=== PATIENT | male | born 1980 | race Caucasian/White ===

== ENCOUNTER 2018-03-09 05:54 | Emergency (ER) | payer BC ==
[2018-03-09 05:57] VITALS: BP 152/85
--- NOTE | 2018-03-09 06:54 | ED ---
Throat Pain/Nasal Congestion - HPI Summary HPI Summary: 47 presents to the ER with complaints of throat pain. Patient states he thinks he had strep. States throat began being sore 3 days ago but worsened yesterday/ today. He had strep as a child frequently. Admits to fever with highest being around 101 Fahrenheit. Patient has taken ibuprofen and NyQuil. NyQuil last taken prior to arrival. No known strep contact. Denies cough, congestion, chest pain, trouble breathing, headache, nausea/vomiting. Has had some body aches and felt ill. No history of peritonsillar abscess. No other past history. No other medications. No trouble swallowing but is sore. - History of Current Complaint Chief Complaint: EDThroatPain Time Seen by Provider: 03/09/18 06:11 Hx Obtained From: Patient Onset/Duration: Sudden Onset, Lasting Days Severity: Moderate Associated Signs And Symptoms: Positive: Dysphagia Cough: None - Allergies/Home Medications Allergies/Adverse Reactions: Allergies Allergy/AdvReac Type Severity Reaction Status Date / Time No Known Allergies Allergy Verified 03/09/18 05:57 PMH/Surg Hx/FS Hx/Imm Hx Endocrine/Hematology History: Denies: Hx Diabetes Cardiovascular History: Denies: Hx Hypertension Respiratory History: Denies: Hx Asthma Psychiatric History: Denies: Hx Anxiety - Surgical History Surgery Procedure, Year, and Place: n/a - Immunization History Immunizations Up to Date: Yes Infectious Disease History: No Infectious Disease History: Denies: Traveled Outside the [place] in Last 30 Days - Family History Known Family History: Positive: None - Social History Alcohol Use: None Substance Use Type: Reports: None Smoking Status (MU): Never Smoked Tobacco Review of Systems Positive: Fever, Fatigue Positive: Sore Throat Cardiovascular: Negative Respiratory: Negative Gastrointestinal: Negative Positive: Myalgia Neurological: Negative All Other Systems Reviewed And Are Negative: Yes Physical Exam Triage Information Reviewed: Yes Vital Signs On Initial Exam: Initial Vitals Temp Pulse Resp BP Pulse Ox 99.0 F 89 16 152/85 98 03/09/18 05:55 03/09/18 05:55 03/09/18 05:55 03/09/18 05:55 03/09/18 05:55 low grade temp noted, patient did take acetaminophen prior to arrival. elevated BP noted patient will follow up for recheck Vital Signs Reviewed: Yes Appearance: Positive: Well-Appearing, No Pain Distress, Well-Nourished Skin: Positive: Warm, Skin Color Reflects Adequate Perfusion, Dry Head/Face: Positive: Normal Head/Face Inspection Eyes: Positive: EOMI, Conjunctiva Clear ENT: Positive: Hearing grossly normal, Pharyngeal erythema, TMs normal, Tonsillar swelling - left greater than right, Tonsillar exudate, Hoarse voice, Uvula midline - no sign of peritonsillar abscess, airway patent, Other - odor noted, similar to strep odor. Negative: Nasal congestion Dental: Positive: Cervical Lymphadenopathy Neck: Positive: Supple, Nontender Respiratory/Lung Sounds: Positive: Clear to Auscultation, Breath Sounds Present. Negative: Rales, Rhonchi, Wheezes Cardiovascular: Positive: Normal, RRR, Pulses are Symmetrical in both Upper and Lower Extremities. Negative: Murmur, Rub Abdomen Description: Positive: Nontender, Soft Bowel Sounds: Positive: Present Musculoskeletal: Positive: Normal, Strength/ROM Intact Neurological: Positive: Normal, Sensory/Motor Intact, Alert, Oriented to Person Place, Time Diagnostics - Vital Signs Vital Signs Temp Pulse Resp BP Pulse Ox 03/09/18 05:55 99.0 F 89 16 152/85 98 - Laboratory Lab Statement: Any lab studies that have been ordered have been reviewed, and results considered in the medical decision making process. EENT Course/Dx - Course Course Of Treatment: based on centor criteria, not required to do swab. symptoms and physical exam findings consistent with strep. fluids, rest, ibuprofen/tylenol, salt water gargles, chloraseptic spray and amoxicillin. aware of worsening signs and symptoms to watch out for. no other concerns at this time. follow up with pcp, and to recheck BP - Differential Diagnoses Differential Diagnoses: Pharyngitis, Tonsilitis - Diagnoses Provider Diagnoses: Strep pharyngitis Discharge - Sign-Out/Discharge Documenting (check all that apply): Discharge/Admit/Transfer - Discharge Plan Condition: Good Disposition: HOME Prescriptions: Amoxicillin PO (*) [Amoxicillin 500 MG CAP*] 500 mg PO Q12H #20 cap Patient Education Materials: Strep Throat (ED) Referrals: Felix Dias MD [Primary Care Provider] - Additional Instructions: Take prescribed medication as directed, until entire dose is finished, even if symptoms improve. Recommend taking probiotics in between doses to replenish normal antoine. Increase fluids and rest. Ibuprofen/tylenol for fever and pain. Salt water gargles, chloraseptic spray. Good oral hygiene, do not share drinks. strep is very contagious. Any new or worsening signs/symptoms to watch out for. Follow up with PCP in 2-3 days. - Billing Disposition and Condition Condition: GOOD Disposition: HOME
== END 2018-03-09 07:21 | disposition home or self-care (01) ==
LOC: ED 05:54
DX: J02.0 Streptococcal pharyngitis (principal); R50.9 Fever, unspecified; R53.83 Other fatigue
CPT/HCPCS: 99282

== ENCOUNTER 2018-10-16 13:04 | Emergency (ER) | payer BC ==
[2018-10-16] MEDS ORDERED: Albuterol 0.5% CONC NEB.SOL* 5 MG/ML 20 ml BOT INH ONE (13:32)
[2018-10-16] MEDS ORDERED: Albuterol 2.5 MG/3 ML NEB.SOL* (0.083%) INH ONE ×2 (13:38→13:42)
--- NOTE | 2018-10-16 13:54 | ED ---
HPI Febrile Illness - HPI Summary HPI Summary: Pt is a 38 y/o male who presents to the ED c/o fever. Hes had fevers ranging from 100-102 degrees F for the past 4 days. Pt also has a hacking cough, but he doesnt cough up much phlegm, and body aches, SOB, and chills. Pt denies any N/V/D or sinus tenderness. He took Nyquil 2 hours ago and had toast with it. Pt did not get this seasons flu shot. - History of Current Complaint Chief Complaint: EDGeneral Time Seen by Provider: 10/16/18 13:23 Hx Obtained From: Patient Onset/Duration: Started Days Ago - 4, Still Present Timing: Constant Current Severity: None Pain Intensity: 0 Pain Scale Used: 0-10 Numeric Aggravating Factors: Nothing Alleviating Factors: Nothing Associated Signs and Symptoms: Chills, Cough, SOB - Allergy/Home Medications Allergies/Adverse Reactions: Allergies Allergy/AdvReac Type Severity Reaction Status Date / Time No Known Allergies Allergy Verified 03/09/18 05:57 PMH/Surg Hx/FS Hx/Imm Hx Endocrine/Hematology History: Denies: Hx Diabetes Cardiovascular History: Denies: Hx Hypertension Respiratory History: Denies: Hx Asthma Psychiatric History: Denies: Hx Anxiety - Surgical History Surgery Procedure, Year, and Place: n/a Infectious Disease History: No Infectious Disease History: Denies: Traveled Outside the [place] in Last 30 Days - Family History Known Family History: Negative: Cardiac Disease, Hypertension, Diabetes - Social History Alcohol Use: None Hx Substance Use: No Substance Use Type: Reports: None Hx Tobacco Use: Yes Smoking Status (MU): Never Smoked Tobacco Review of Systems Positive: Fever, Chills, Other - Body aches Negative: Other - sinus tenderness Positive: Shortness Of Breath, Cough Negative: Vomiting, Diarrhea, Nausea All Other Systems Reviewed And Are Negative: Yes Physical Exam - Summary Physical Exam Summary: Appearance: Well appearing, no pain distress Skin: warm, dry, reflects adequate perfusion Head/face: normal Eyes: EOMI, ROBERT ENT: mucous membranes moist, no nasal discharge, some clear mucus in the posterior pharynx Neck: supple, non-tender Respiratory: bronchial breath sounds in the left periphery, no wheezes, rales, or rhonchi Cardiovascular: RRR, pulses symmetrical Abdomen: non-tender, soft Bowel Sounds: present Musculoskeletal: normal, strength/ROM intact Neuro: normal, sensory motor intact, A&Ox3 Triage Information Reviewed: Yes Vital Signs On Initial Exam: Initial Vitals Temp Pulse Resp BP Pulse Ox 99.1 F 80 16 145/95 97 10/16/18 13:06 10/16/18 13:06 10/16/18 13:06 10/16/18 13:06 10/16/18 13:06 Vital Signs Reviewed: Yes Diagnostics - Vital Signs Vital Signs Temp Pulse Resp BP Pulse Ox 10/16/18 13:42 84 14 98 10/16/18 13:06 99.1 F 80 16 145/95 97 - Laboratory Lab Statement: Any lab studies that have been ordered have been reviewed, and results considered in the medical decision making process. - Radiology CXR Radiology Interpretation Completed By: Radiologist Summary of Radiographic Findings: HYPERINFLATION, WHICH CAN BE SEEN WITH COPD OR REACTIVE AIRWAY DISEASE. NO ACTIVE CARDIOPULMONARY DISEASE. ED physician reviewed radiology report. Course/Dx - Course Course Of Treatment: Nurse's note reviewed. Patient with cough, congestion and fevers. X-ray shows some hyperinflation but no acute infiltrate. Improved with breathing treatment. No indication for steroid. Treat symptomatically. Improved on discharge. - Febrile Illness Differential Diagnoses: Pneumonia, Other: - Bronchitis, viral - Diagnoses Provider Diagnoses: Acute bronchitis Discharge - Sign-Out/Discharge Documenting (check all that apply): Patient Departure - Discharge - Discharge Plan Condition: Improved Disposition: HOME Prescriptions: Albuterol HFA INHALER* [Ventolin HFA Inhaler*] 1 - 2 puff INH Q4H PRN #1 mdi PRN Reason: Sob/Wheezing Benzonatate CAP* [Tessalon 100 MG CAP*] 100 mg PO TID PRN #20 cap PRN Reason: Cough guaiFENesin [Guaifenesin ER] 600 mg PO BID #20 tab.er.12h Patient Education Materials: Acute Bronchitis (ED) Referrals: Felix Dias MD [Primary Care Provider] - Additional Instructions: Humidifier while sleeping. Avoid smoke and smokers. Return with persistent fevers, chest pain, difficulty breathing, worse or other concerns. Call Friday to follow up with your primary care physician if you still are not well. - Billing Disposition and Condition Condition: IMPROVED Disposition: Home - Attestation Statements Document Initiated by Scribe: Yes Documenting Scribe: Rosita Travis Provider For Whom Scribe is Documenting (Include Credential): Pb Zamora MD Scribe Attestation: I, Rosita Travis, scribed for Pb Zamora MD on 10/16/18 at 1458. Scribe Documentation Reviewed: Yes Provider Attestation: The documentation as recorded by the scribeRosita accurately reflects the service I personally performed and the decisions made by me, Pb Zamora MD Status of Scribe Document: Viewed
[2018-10-16 14:04] VITALS: BP 138/82
== END 2018-10-16 14:03 | disposition home or self-care (01) ==
LOC: ED 13:04
DX: J20.9 Acute bronchitis, unspecified (principal)
CPT/HCPCS: 71046; 99282; J7611